=== PATIENT | female | born 1935 | race Caucasian/White ===

== ENCOUNTER 2017-08-01 11:22 | Emergency (ER) | payer MEDICARE, BC, MEDICAID ==
--- NOTE | 2017-08-05 16:38 | EDM.PDOC ---
Scribed by Kimmie Lopez 08/05/17 1638 for Martin Farris MD ED HPI GENERAL MEDICAL PROBLEM - General Chief Complaint: Respiratory Problem Stated Complaint: [id number] BRONCHITIS Time Seen by Provider: 08/01/17 11:33 Source of Information: Reports: Patient, RN, RN Notes Reviewed History Limitations: Reports: No Limitations - History of Present Illness INITIAL COMMENTS - FREE TEXT/NARRATIVE: Patient complains of onset of cough and sore throat last night. Denies fever or chills. Patient states cough is dry.No other symptoms. Onset Date: 07/31/17 Duration: Getting Worse Location: Reports: Chest Quality: Reports: Ache Severity: Moderate Improves with: Reports: None Worsens with: Reports: None Associated Symptoms: Reports: No Other Symptoms Lower Back Pain Score (Numeric/FACES): 0 - Related Data Allergies Allergy/AdvReac Type Severity Reaction Status Date / Time No Known Allergies Allergy Verified 08/01/17 11:30 Home Meds: Home Meds Acetaminophen/oxyCODONE [Percocet 325-5 MG] 1 tab PO TID PRN 08/01/17 [History] Allopurinol [Zyloprim] 300 mg PO DAILY 08/01/17 [History] Aspirin [Halfprin] 81 mg PO DAILY 08/01/17 [History] Biotin/FA/Vit C/Vit B Complex [Nephrocaps] 1 tab PO DAILY 08/01/17 [History] Calcitriol [Rocaltrol] 0.75 mcg PO ASDIRECTED 08/01/17 [History] Clopidogrel [Plavix] 75 mg PO BEDTIME 08/01/17 [History] Gabapentin [Neurontin] 300 mg PO BID 08/01/17 [History] Insulin Aspart [Novolog Flexpen] 18 units SQ TIDMEALS 08/01/17 [History] Insulin Detemir [Levemir Flextouch] 22 unit SQ ACBREAKFAST 08/01/17 [History] Insulin Detemir [Levemir Flextouch] 26 unit SQ BEDTIME 08/01/17 [History] Linagliptin [Tradjenta] 5 mg PO DAILY 08/01/17 [History] Lutein/Minerals/Vit A,C & E [Ocuvite] 1 tab PO DAILY 08/01/17 [History] Pantoprazole 20 mg PO DAILY 08/01/17 [History] Simvastatin [Zocor] 40 mg PO BEDTIME 08/01/17 [History] Solifenacin [Vesicare] 5 mg PO DAILY 08/01/17 [History] fentaNYL [Duragesic] 25 mcg TOP Q3D 08/01/17 [History] ED ROS GENERAL - Review of Systems Review Of Systems: ROS reveals no pertinent complaints other than HPI. ED EXAM, GENERAL - Physical Exam Exam: See Below Exam Limited By: No Limitations General Appearance: Moderate Distress, Other (frail elderly non-toxic appearing. ) Eye Exam: Bilateral Eye: Normal Inspection Ears: Normal External Exam, Normal Canal, Hearing Grossly Normal, Normal TMs Nose: Normal Inspection, Normal Mucosa, No Blood Throat/Mouth: Other (mild pharyngeal erythema) Head: Atraumatic, Normocephalic Neck: Normal Inspection, Supple, Non-Tender, Full Range of Motion Respiratory/Chest: No Respiratory Distress, No Accessory Muscle Use, Wheezing ( mild upper airway expiratory wheezes.) Cardiovascular: Normal Peripheral Pulses, Regular Rate, Rhythm, No Edema, No Gallop, No JVD, No Murmur, No Rub GI/Abdominal: Normal Bowel Sounds, Soft, Non-Tender, No Organomegaly, No Distention, No Abnormal Bruit, No Mass (Female) Exam: Deferred Rectal (Female) Exam: Deferred Neurological: Alert, Oriented, CN II-XII Intact, Normal Cognition, Normal Gait, Normal Reflexes, No Motor/Sensory Deficits Psychiatric: Normal Affect, Normal Mood Skin Exam: Warm, Dry, Intact, Normal Color, No Rash Course - Vital Signs Last Recorded V/S: Last Vital Signs Temp 36.6 C 08/01/17 11:30 Pulse 80 08/01/17 11:30 Resp 18 08/01/17 11:30 BP 154/137 H 08/01/17 11:30 Pulse Ox - Orders/Labs/Meds Labs: Rapid strep: Negative. - Radiology Interpretation Free Text/Narrative:: Chest x-ray: Minimal atelectasis right middle lobe. Probable trace right pleural effusion. See rad report. Departure - Departure Time of Disposition: 12:53 Disposition: Home, Self-Care 01 Condition: Good Clinical Impression: Acute bronchitis Qualifiers: Bronchitis organism: unspecified organism Qualified Code(s): J20.9 - Acute bronchitis, unspecified - Discharge Information Instructions: Acute Bronchitis, [id number] Forms: ED Department Discharge Additional Instructions: RX: Tessalon Perles 200mg. RX: Zithromax 500mg. Follow up in clinic if not improving in 3-4 days. Return to ER if devlops any further difficulties. I have read and agree with the documentation that has been completed regarding this visit. By signing this record, I attest that the documentation was completed in my physical presence and is an accurate record of the encounter.
== END 2017-08-01 13:04 | disposition home or self-care (01) ==
LOC: DL.ED 11:22
DX: J20.9 Acute bronchitis, unspecified (principal); Z79.82 Long term (current) use of aspirin; Z79.02 Long term (current) use of antithrombotics/antiplatelets; Z79.899 Other long term (current) drug therapy; Z79.4 Long term (current) use of insulin
CPT/HCPCS: 71046; 87081; 87430; 99283